=== PATIENT | female | born 2000 | race African-American/Black ===

== ENCOUNTER 2019-12-27 05:37 | Inpatient (IN) | payer OTHER, SELFPAY ==
[2019-12-27] VITALS (163 sets, daily range): BP systolic 75–184; BP diastolic 45–123; PULSE 54–204; RESP 16; TEMP 36.6–37.2; O2SAT 76–100; BMI 36.6
--- NOTE | 2019-12-27 06:30 | LDADM ---
This patient, Isaac Salas, was admitted to Labor/Delivery/Recovery 106 on 12/27/19 at 05:37. Plans for labor, pain management and were discussed with patient. Patient/family oriented to hospital policies and general routines including ID bracelet, bed and alarms, visiting hours, pain management, procedures, bathroom and other care routines, personal items, smoking policy, room service/diet and guest tray routines, infant security routines, and visiting hours. Patient/Family are encouraged to report perceived risks to care and to ask questions if they do not understand what they are told or what they should do. See OBIX for further documentation.
[2019-12-27] MEDS: LACTATED RINGERS 1,000 ML 125 ML IV CONT ×3 (06:45→14:17)
[2019-12-27] MEDS: AMPICILLIN 2 GM/NS 100 ML 2 GM/100 ML BAG IVPB (06:46)
[2019-12-27 06:48] LABS: Basophils Percent Auto 0.3 % (0.2-1.2); Eosinophils Absolute Auto 0.1 K/mm3 (0-0.3); Eosinophils Percent Auto 0.5 % (0-4.4); Hematocrit 33.7 % (37.0-47.0); Hemoglobin 11.2 g/dL (12.0-15.0); Immature Granulocyte Absolute 0.14 K/mm3 (0.00-0.031); Immature Granulocyte Percent A 1.5 % (0-0.5); Lymphocytes Absolute Auto 2.07 K/mm3 (0.9-3.2); Mean Corpuscular HGB Conc 33.2 g/dl (32-36); Mean Corpuscular Hemoglobin 28.6 pg (26-34); Mean Platelet Volume 9.2 fl (7.4-10.4); Monocytes Absolute Auto 0.9 K/mm3 (0.1-0.6); Monocytes Percent Auto 9.8 % (2.6-8.5); Neutrophils Absolute Auto 6.2 K/mm3 (1.3-6.7); Neutrophils Percent Auto 65.9 % (45.5-73.1); Platelet Count Result 330 k/mm3 (150-375); Red Blood Count 3.92 M/mm3 (4.2-5.4); Red Cell Distribution Width 13.6 % (11.5-14.5); White Blood Count 9.4 K/mm3 (4.5-10.0)
[2019-12-27 08:44] LABS: Rapid Plasma Reagin Non-Reactive (NonReactive)
--- NOTE | 2019-12-27 09:04 | P.HP_ITS ---
Obstetrics - Admit Note Admission Note: record reviewed. Pertinent additions to the history and/or any subsequent changes in the physical findings that are not consistent with the expected course of the were found. Additions to the history and/or subsequent changes in the physical findings follow. 19 yo primigravida comes to L & D for MIL at 39 weeks , confirmed by VIMAL of .01/03/2020. complicated by hyperthyroidism and is been seen by tactical/mobile watch officer. Methimizole was stopped 2 weeks ago. GBS positive AROM performed, thin meconium status reassuring Cx; /-2 Expectant managment of labor.
[2019-12-27] MEDS: AMPICILLIN 1 GM/NS 50 ML 1 GM/50 ML BAG IVPB ×3 (10:03→18:04)
--- NOTE | 2019-12-27 10:29 | WPDANESEPP ---
Anes - Eval Pre Procedure Procedure: Labor epidural Date/Time: 12/27/19 10:29 Surgeon: Madelin Quach M.D. Preop Diagnosis: pain during labor Pre Op Diagnosis: iol Patient Data Age: 19 Gender: F Height: 1.68 m Weight: 103 kg Last Vital Signs Temp 37.1 C 12/27/19 07:30 Pulse 66 12/27/19 10:29 BP 145/87 H 12/27/19 10:29 Pulse Ox 100 12/27/19 10:29 Allergies Allergy/AdvReac Type Severity Reaction Status Date / Time No Known Allergies Allergy Verified 12/20/19 15:38 Home Medications Medication Instructions Recorded Confirmed Type PNV cmb#95-ferrous fumarate-FA 1 tablet PO DAILY 12/20/19 12/27/19 History [] ergocalciferol (vitamin D2) 50,000 unit PO 2XW 12/20/19 12/27/19 History [Vitamin D2] Laboratory Tests 12/27/19 12/27/19 12/27/19 06:38 06:38 06:38 WBC 9.4 K/mm3 K/mm3 (4.5-10.0) RBC 3.92 M/mm3 L M/mm3 (4.2-5.4) Hgb 11.2 g/dL L g/dL (12.0-15.0) Hct 33.7 % L % (37.0-47.0) MCV 86.0 fl fl (80-100) MCH 28.6 pg pg (26-34) MCHC 33.2 g/dl g/dl (32-36) RDW 13.6 % % (11.5-14.5) Plt Count 330 k/mm3 k/mm3 (150-375) MPV 9.2 fl fl (7.4-10.4) Immature Gran % (Auto) 1.5 % H % (0-0.5) Neut % (Auto) 65.9 % % (45.5-73.1) Lymph % (Auto) 22.0 % % (18.3-44.2) [place] % (Auto) 9.8 % H % (2.6-8.5) Eos % (Auto) 0.5 % % (0-4.4) Baso % (Auto) 0.3 % % (0.2-1.2) Lymph # (Auto) 2.07 K/mm3 K/mm3 (0.9-3.2) [place] # (Auto) 0.9 K/mm3 H K/mm3 (0.1-0.6) Eos # (Auto) 0.1 K/mm3 K/mm3 (0-0.3) Baso # (Auto) 0.0 K/mm3 K/mm3 (0.0-0.1) Abs Immat Gran (auto) 0.14 K/mm3 H K/mm3 (0.00-0.031) Absolute Neuts (auto) 6.2 K/mm3 K/mm3 (1.3-6.7) Absolute Nucleated RBC 0.0 K/mm3 K/mm3 (0.0-0.012) Nucleated RBC % 0.0 % % (0.0-0.2) RPR Non-reactive (NonReactive) Blood Type O Positive Antibody Screen Negative Patient hx anesthesia problems: none Family hx anesthesia problems: none [facility] Family History Family History (Updated 12/20/19 @ 15:42 by Mik Vazquez RN) Mother H/O thyroidectomy Hypertension Grandparent Diabetes mellitus Social History Social History Smoking status: Former smoker Substance use: former Spiritual care concerns: No Exam Day of Procedure 12/27/19 10:29
[2019-12-27] MEDS: ONDANSETRON INJ 4 MG/2 ML VIAL IV PUSH (11:44)
--- NOTE | 2019-12-27 20:25 | PM.OBPRVD ---
OB - Delivery Note Procedure Delivery date: 12/27/19 Induction method: AROM (thin meconium) and per pitocin protocol Delivery monitor: internal FHT and internal uterine Route of delivery: Laceration description: None Estimated blood loss (mL): 100 Anesthesia type: Epidural Disposition: floor Complications: None Baby Date of : 12/27/19 Weeks of gestation at delivery: 39 gender: Male Weight (pounds): 6 Weight (ounces): 4 presentation: vertex Placenta delivery description: Spontaneous cord vessel description: Nuchal Cord (x 2) score one minute: 8 score five minutes: 9
--- NOTE | 2019-12-27 20:28 | P.DS_ITS ---
OB - DS: Summary OB Procedures : NST OB Procedures Intrapartum: Spontaneous Vag Delivery OB Procedures: : None Peripartum Data Infant Delivery Method: Natural Vaginal complications: none Time Spent with Patient Time attestation: Total time spent providing and/or coordinating discharge services: DS: Data Data Completed and Pending Labs on day of discharge: Labs from last 24 hours 12/27/19 12/27/19 12/27/19 06:38 06:38 06:38 WBC 9.4 RBC 3.92 L Hgb 11.2 L Hct 33.7 L MCV 86.0 MCH 28.6 MCHC 33.2 RDW 13.6 Plt Count 330 MPV 9.2 Immature Gran % (Auto) 1.5 H Neut % (Auto) 65.9 Lymph % (Auto) 22.0 [place] % (Auto) 9.8 H Eos % (Auto) 0.5 Baso % (Auto) 0.3 Lymph # (Auto) 2.07 [place] # (Auto) 0.9 H Eos # (Auto) 0.1 Baso # (Auto) 0.0 Abs Immat Gran (auto) 0.14 H Absolute Neuts (auto) 6.2 Absolute Nucleated RBC 0.0 Nucleated RBC % 0.0 RPR Non-reactive Blood Type O Positive Antibody Screen Negative Discharge Plan Discharge Attending physician on discharge: Madelin Quach Discharging Clinician: Madelin Quach Patient Disposition: Home, Self-Care Activity: as tolerated and pelvic rest Diet: regular Patient Instructions: Antibiotic Form Stand Alone Forms: General Discharge Information Follow-up/Referrals: Madelin Quach MD [Physician] - Discharge Medications: New polysaccharide iron complex 150 mg iron Capsule 150 mg PO BIDWM Qty: 60 RF: 0 docusate sodium 100 mg Capsule 100 mg PO BID Qty: 60 RF: 0 ibuprofen 600 mg Tablet 600 mg PO Q6H PRN (Reason: Cramping) Qty: 60 RF: 0 Continued PNV cmb#95-ferrous fumarate-FA [] 28 mg iron- 800 mcg Tablet 1 tablet PO DAILY RF: 0 ergocalciferol (vitamin D2) [Vitamin D2] 1,250 mcg (50,000 unit) Capsule 50,000 unit PO 2XW RF: 0 Date of admission: 12/27/19 05:37 Primary Care Provider: Bladimir,Falguni Chow Admitting Provider: Madelin Quach Attending physician on admission: Madelin Quach
[2019-12-27] MEDS: IBUPROFEN 600 MG TABLET (20:55)
[2019-12-27 21:01] LABS: Uric Acid 4.8 mg/dL (2.5-7.5)
[2019-12-27 21:12] LABS: Alanine Aminotransferase 19 U/L (4-35); Albumin Level 3.6 g/dL (3.5-5.1); Alkaline Phosphatase 243 U/L (38-126); Aspartate Amino Transferase 29 U/L (14-36); Bilirubin,Total 0.5 mg/dL (0.2-1.3); Calcium 9.3 mg/dL (8.4-10.2); Carbon Dioxide 25 mmol/L (22-30); Chloride 100 mmol/L (98-107); Estimated CRCL calculation 133 ml/min; Estimated Glomerular Filt Rate > 60; Glucose 158 mg/dL (65-105); Potassium 3.6 mmol/L (3.4-5.0)
[2019-12-27 21:16] LABS: Sodium 133 mmol/L (137-145)
[2019-12-27 21:19] LABS: Amphetamine Screen Urine Negative (Negative); Barbiturate Screen Urine Negative (Negative); Benzodiazepines Screen Urine Negative (Negative); Cannabinoid Screen Urine Positive (Negative); Cocaine Screen Urine Negative (Negative); Methadone Screen Urine Negative (Negative); Opiate Screen Urine Negative (Negative); Phencyclidine Screen Urine Negative (Negative)
[2019-12-27 21:19] LABS: Blood Urea Nitrogen < 2 mg/dL (7-17)
[2019-12-27] MEDS: FAMOTIDINE 20 MG TABLET PO (21:56)
[2019-12-27] MEDS: BENZOCAINE 20% AER SPR (*SP) 56 GM CAN 1 SPRAY TOPICAL (21:56)
[2019-12-27] MEDS: WITCH HAZEL 40 PADS 1 PAD TOPICAL (21:56)
[2019-12-28 05:20] LABS: Hematocrit 30.7 % (37.0-47.0); Hemoglobin 10.4 g/dL (12.0-15.0)
--- NOTE | 2019-12-28 08:20 | WPDANLDPN2 ---
Anes-Prog Note L&D Date/Time: 12/28/19 08:20 Comfortable throughout: labor and delivery Neuraxial method: epidural Epidural/Spinal procedure site: clean & non-tender Neuro status: Neuro function grossly intact. Cardiovascular status: normal Respiratory status: normal Airway patency: baseline Mental status: baseline Post-Op hydration status: normal Vital Signs: Last Vital Signs Temp 36.7 C 12/27/19 22:30 Pulse 67 12/27/19 22:30 Resp 16 12/27/19 22:30 BP 153/87 H 12/27/19 22:30 Pulse Ox 97 12/27/19 19:35 I/O: Intake & Output 12/27/19 12/28/19 12/28/19 23:59 07:59 15:59 Intake Total 1000 Output Total 195 Balance 805 Post-procedural complaints: none Patient feedback: Patient satisfied with anesthetic care.
[2019-12-28 09:00] VITALS: BP 132/76; PULSE 86; RESP 18; TEMP 36.9
[2019-12-28] MEDS: IBUPROFEN 600 MG TABLET PO ×2 (09:03→20:23)
[2019-12-28] MEDS: FAMOTIDINE 20 MG TABLET PO (09:03)
[2019-12-28] MEDS: MULTIVIT/MIN/PREN/FOL AC/IRON TABLET 1 TAB PO (09:04)
[2019-12-28] MEDS: DOCUSATE SODIUM 100 MG CAPSULE PO (09:04)
--- NOTE | 2019-12-28 09:55 | PCCCNOTE ---
Addendum entered by KAMAR Gutiérrez 12/29/19 08:37: 12/29/2019, received email notification from [facility] that a report will not be generated. DCFS will not come to see the pt. Intake ID: [id number]. Pt. aware and denies any further case management needs. Original Note: Care Coordination Note: Met with pt. and DEREK Livingston today regarding concerns of maternal substance use. This is pt.'s first child. DEREK Cameroni first child as well. Pt. has supportive family who reside locally. Pt. has all necessary supplies including a bassinet, car seat, clothing, diapers and other supplies. Pt. was provided resources and states she is already utilizing [place] for herself. Pt. reports she uses marijuana recreationally, denies any other substance use. Pt. denies that she is addicted to marijuana or any other substance. Pt. is aware that baby is currently being tested, and DCFS will be contacted to determine if they will come out and speak to ptLorraine CC submitted online report to [facility] Report ID: [id number]. Will follow.
--- NOTE | 2019-12-28 14:30 | P.PNOB_ITS ---
OB - PN: Subj Subjective Date/time seen: 12/28/19 14:30 Patient comments: no complaints, pain well controlled, tolerating diet and flatus present [place] baby status: doing well and nursing well feeding status: breast and bottle feeding OB - PN: Obj Data Labs CBC & Chem 7: 12/28/19 04:46 12/27/19 20:38 Labs: Laboratory Results - last 24 hr 12/27/19 12/27/19 12/27/19 20:38 20:38 20:43 Hgb Hct Sodium 133 L Potassium 3.6 Chloride 100 Carbon Dioxide 25 BUN < 2 L Creatinine 0.70 Estim Creat Clear Calc 133 Estimated GFR > 60 Glucose 158 H Uric Acid 4.8 Calcium 9.3 Total Bilirubin 0.5 AST 29 ALT 19 Alkaline Phosphatase 243 H Total Protein 7.0 Albumin 3.6 Urine Opiates Screen Negative Urine Methadone Screen Negative Ur Barbiturates Screen Negative Ur Phencyclidine Scrn Negative Ur Amphetamine Screen Negative U Benzodiazepines Scrn Negative Urine Cocaine Screen Negative U Cannabinoids Screen Positive A 12/28/19 04:46 Hgb 10.4 L Hct 30.7 L Sodium Potassium Chloride Carbon Dioxide BUN Creatinine Estim Creat Clear Calc Estimated GFR Glucose Uric Acid Calcium Total Bilirubin AST ALT Alkaline Phosphatase Total Protein Albumin Urine Opiates Screen Urine Methadone Screen Ur Barbiturates Screen Ur Phencyclidine Scrn Ur Amphetamine Screen U Benzodiazepines Scrn Urine Cocaine Screen U Cannabinoids Screen OB - PN A/P Plan day: 1 Plan: routine care, discharge home (tomorrow) and follow up 6 weeks Comments: encourage ambulation BF instructed desires infant to be circumcised. discussed procedure as well as risk i.e i nfection, bleeding, injury to penis. Couple voiced verbalized. informed consent obtained Anticipate D/C tomorrow Time Spent With Patient Time: Total time spent is greater than 50% in coordination of care (as documented) at patient's floor/unit and/or counseling patient: Time with patient: 15 - 25 minutes Review of Systems Constitutional: Constitutional: Reports no additional constitutional complaints Cardiovascular: Cardiovascular: Reports no additional cardiovascular complaints Respiratory: Respiratory: Reports no additional respiratory complaints Gastrointestinal: Gastrointestinal: Reports no additional gastrointestinal complaints Genitourinary: Genitourinary: Reports no additional female genitourinary complaints Exam Const: General: comfortable, no acute distress, alert and awake Resp: Effort & Inspection: normal respiratory effort Auscultation: clear to auscultation bilaterally Cardio: Rate: regular rate GI: Auscultation: normal bowel sounds Other: Fundus firm below umbilicus
[2019-12-28] MEDS: SIMETHICONE 80 MG TAB.CHEW PO (15:24)
[2019-12-28 20:17] VITALS: BP 133/87; PULSE 91; RESP 18; TEMP 36.9
--- NOTE | 2019-12-28 22:00 | PC.NURSE ---
Patient viewed the discharge video Mother & Baby Care, The First Two Weeks . Patient was given the opportunity and encouraged to ask questions. Patient verbalized understanding of information shared and has been given the mother/baby guide for home reference.
--- NOTE | 2019-12-29 01:51 | PC.NURSE ---
Daylight Savings Time For Daylight Savings Time Beginning in the Spring - Clocks are moved ahead. For [facility], the time of change occurs at 0200 hrs. Time is taken from the sql server dba. This entry on the patient's chart recognizes the change in time reflected during documentation. Example: 2 entries for vital signs may be charted for 0200 hrs.
[2019-12-29 06:25] VITALS: BP 133/82; PULSE 72; RESP 14; TEMP 36.3
[2019-12-29] MEDS: IBUPROFEN 600 MG TABLET PO (06:58)
== END 2019-12-29 14:25 | disposition home or self-care (01) | DRG 560 ==
LOC: ANHLDR 09:35 → ANHOB2 22:44
PROVIDERS: Admitting Provider Obstetrics & Gynecology; PCP Family Medicine; Visit Provider Obstetrics & Gynecology
DX: O13.4 Gestational [pregnancy-induced] hypertension without significant proteinuria, complicating childbirth (principal); O99.284 Endocrine, nutritional and metabolic diseases complicating childbirth; E05.90 Thyrotoxicosis, unspecified without thyrotoxic crisis or storm; O99.824 Streptococcus B carrier state complicating childbirth; O77.0 Labor and delivery complicated by meconium in amniotic fluid; O43.113 Circumvallate placenta, third trimester; O43.123 Velamentous insertion of umbilical cord, third trimester; O99.324 Drug use complicating childbirth; F12.90 Cannabis use, unspecified, uncomplicated; Z3A.39 39 weeks gestation of pregnancy; Z87.891 Personal history of nicotine dependence; Z37.0 Single live birth
CPT/HCPCS: 36415; 80053; 80307; 84550; 85014; 85018; 85025; 86592; 86850; 86900; 86901; 88307; A9270; J0290; J2405; J2590; J2795; J7120

== ENCOUNTER 2020-01-02 18:18 | Emergency (ER) | payer OTHER, SELFPAY ==
[2020-01-02 18:21] VITALS: BP 155/103; PULSE 99; RESP 16; TEMP 36.8; O2SAT 100
--- NOTE | 2020-01-02 18:39 | ED.SKABFB ---
HPI - Skin/Abscess/Foreign Bdy General Chief complaint: Skin/Abscess/Foreign Body Stated complaint: rash/swelling to face Time Seen by Provider: 01/02/20 18:30 Source: patient and RN notes reviewed Mode of arrival: ambulatory Limitations: no limitations History of Present Illness HPI narrative: A 19 y/o female presents to the ED with a constant, worsening, eye itching and swelling below her eyes for the past 2 days. She states that it began around her mouth and that it then spread up to her eyes and nose. She reports associated facial swelling, itching, and burning. She notes that her eyes have also been watering. She denies any white discharge. No redness of the eyes. She denies any new makeup, soaps, medications, or any new exposers. She also denies any SOB, tongue swelling, vision changes, or rashes to other places. She denies any fever or chills. Denies vision changes. No hives. MD complaint: rash Onset (ago): day(s) (2) Location: face Quality: burning and other (swelling and itching) Pain Consistency: constant and other (worsening) Context: none Associated symptoms: other (eye watering) Treatments prior to arrival: none Related Data Home Medications Medication Instructions Recorded Confirmed PNV cmb#95-ferrous fumarate-FA 1 tablet PO DAILY 12/20/19 12/27/19 [] ergocalciferol (vitamin D2) 50,000 unit PO 2XW 12/20/19 12/27/19 [Vitamin D2] Allergies Allergy/AdvReac Type Severity Reaction Status Date / Time No Known Allergies Allergy Verified 01/02/20 18:38 Review of Systems Review of Systems: Narrative: EYES: Denies visual changes. She reports eye watering. ENT: Denies tongue swelling. RESPIRATORY: Denies dyspnea. GI: Denies abd pain, nausea or vomiting SKIN: Reports a itchy, burning, rash around her mouth, eyes, and nose. Denies any other rashes. All systems reviewed & are unremarkable except as noted in HPI and below PMFSH Past Medical History Medical History Hx of migraines Hypothyroid Surgical History Surgical History No history of previous surgery Family History Family History Mother H/O thyroidectomy Hypertension Grandparent Diabetes mellitus Social History Social History Smoking status: Former smoker Substance use: former Gender identity (if verbalized by the patient): Female Spiritual care concerns: No Exam Narrative: Exam Narrative: GENERAL: Well-appearing, well-nourished, and in no acute distress. HEAD: Normocephalic, atraumatic. EYES: PERRLA and EOMI. no conjunctivitis. Bilateral minimal edema of the lower eyelids, no conjunctival injection. No evidence of vesicles, no discharge from the eye. No tearing. No erythema or warmth. ENT: Turbinates are bilaterally edematous and erythematous. Mild rhinorrhea.. Mucous membranes moist. NECK: Supple. Uvula is midline without tongue edema. No trismus. CHEST: Clear to auscultation. No respiratory distress. HEART: Regular rate and rhythm. No murmur heard. Normal peripheral pulses. ABDOMEN: Soft, nontender, nondistended, normal active bowel sounds. EXTREMITIES: Normal range of motion. No edema. SKIN: Warm, dry, no rash. No urticaria, no vesicles on the face, neck, chest, abdomen or flanks. NEURO: No focal deficits. Alert and oriented x3 Course Vital Signs Vital signs: Vital Signs Temperature 36.8 C 01/02/20 18:21 Pulse Rate 99 01/02/20 18:21 Respiratory Rate 16 01/02/20 18:21 Blood Pressure 155/103 H 01/02/20 18:21 Pulse Oximetry 100 01/02/20 18:21 Temperature 36.8 C 01/02/20 18:21 Pulse Rate 99 01/02/20 18:21 Respiratory Rate 16 01/02/20 18:21 Blood Pressure 155/103 H 01/02/20 18:21 Pulse Oximetry 100 01/02/20 18:21 MDM - Skin/Abscess/Foreign Bdy MDM Narrative Medical decision making narrative: Carli
== END 2020-01-02 19:33 | disposition home or self-care (01) ==
PROVIDERS: Emergency Provider Emergency Medicine; PCP Family Medicine
DX: T78.40XA Allergy, unspecified, initial encounter (principal); H57.89 Other specified disorders of eye and adnexa; E03.9 Hypothyroidism, unspecified; Z87.891 Personal history of nicotine dependence
CPT/HCPCS: 99283

== ENCOUNTER 2020-10-14 10:58 | Emergency (ER) | payer OTHER, SELFPAY ==
[2020-10-14 11:15] VITALS: BP 153/86; PULSE 79; RESP 16; TEMP 36.3; O2SAT 100
--- NOTE | 2020-10-14 11:38 | ED.ABDPAIN ---
HPI - Abdominal Pain General Chief Complaint: Urogenital-Female Stated Complaint: Possible UTI Time Seen by Provider: 10/14/20 11:30 Source: patient Mode of arrival: ambulatory Limitations: no limitations History of Present Illness HPI narrative: Isaac Salas is a 19 yo female with no PMH who comes to express care with c/o burning in abdomen, started the last few days feels like a burning sensation in her esophagus and into her abdomen. States it does not improve with eating and does not get worse with soda or coffee. Woke up this morning with burning sensation that is what brought her here Only significant medical history is she had a baby about 6 months ago Related Data Allergies Allergy/AdvReac Type Severity Reaction Status Date / Time No Known Allergies Allergy Verified 10/14/20 11:17 Review of Systems Review of Systems: Narrative: CONSTITUTIONAL: Denies fever, chills, sweats. EYES: Denies visual changes, redness, discharge. ENT: Denies rhinorrhea, congestion, sore throat, otalgia. CARDIOVASCULAR: Denies chest pain, palpitations, edema. RESPIRATORY: Denies dyspnea, wheezing, cough GASTROINTESTINAL: Denies abdominal pain, nausea, vomiting, diarrhea. Complaining of burning in abdomen GENITOURINARY: Denies dysuria, hematuria, abnormal discharge SKIN: Denies rash or itching. NEUROLOGIC: Denies numbness, or focal weakness. PSYCHIATRIC: Denies anxiety or depression. PMFSH Past Medical History Medical History (Updated 10/14/20 @ 11:57 by Radha Lei CNP) Hx of migraines Hypothyroid Surgical History Surgical History No history of previous surgery Family History Family History Mother H/O thyroidectomy Hypertension Grandparent Diabetes mellitus Social History Social History Smoking status: Former smoker Substance use: former Gender identity (if verbalized by the patient): Female Spiritual care concerns: No Comments At time of signature, I agree with nursing past medical, surgical, social and family history. There is no relevant family history pertinent to the presenting complaint. Exam Narrative: Exam Narrative: GENERAL: This is a well-nourished, well-developed patient, in mild distress. HEAD: normocephalic, atraumatic. EYES: Sclera clear/white. Vision is grossly intact. EARS: External ears normal. Hearing grossly intact. NOSE: External nose normal without nasal discharge, nares without redness, no rhinorrhea. THROAT: Mucous membranes moist, NECK: Neck supple, non-tender CARDIOVASCULAR: Regular rate and rhythm without murmurs, gallops, or rubs. RESPIRATORY: Clear to auscultation. Breath sounds equal bilaterally. No wheezes, rales, or rhonchi. GASTROINTESTINAL: Abdomen soft, non-tender, describes burning in epigastric area and into stomach above umbilicus SKIN: warm, intact with no suspicious lesions or rash, good texture and turgor. NEURO: awake, alert, and oriented to person, place and time. There were no obvious focal neurologic abnormalities. Steady gait EXTREMITIES: Normal range of motion. BACK: Nontender without deformity Course Reevaluation(s) Reevaluation #1: Patient received GI cocktail and Pepcid-we will order the Pepcid for outpatient treatment twice daily Date: 10/14/20 Time: 11:55 Vital Signs Vital signs: Vital Signs Temperature 97.3 F L 10/14/20 11:15 Pulse Rate 79 10/14/20 11:15 Respiratory Rate 16 10/14/20 11:15 Blood Pressure 153/86 H 10/14/20 11:15 Pulse Oximetry 100 10/14/20 11:15 Temperature 97.3 F L 10/14/20 11:15 Pulse Rate 79 10/14/20 11:15 Respiratory Rate 16 10/14/20 11:15 Blood Pressure 153/86 H 10/14/20 11:15 Pulse Oximetry 100 10/14/20 11:15 MDM - Abdominal Pain Lab Data Labs: UCG Bedside Result Negative
[2020-10-14] MEDS: BELLADONNA ALK/PHENOB ELIX 10 ML, MAG HYDROX/ALUMINUM HYD/SIMETH 30 ML, LIDOCAINE HCL 2... PO (11:52)
[2020-10-14] MEDS: FAMOTIDINE 20 MG TABLET PO (11:56)
== END 2020-10-14 12:10 | disposition home or self-care (01) ==
PROVIDERS: Emergency Provider Nurse Practitioner; PCP Family Medicine
DX: K21.9 Gastro-esophageal reflux disease without esophagitis (principal); E89.0 Postprocedural hypothyroidism; Z87.891 Personal history of nicotine dependence
CPT/HCPCS: 81003; 81025; 87077; 87086; 87088; 87186; 99213; A9270; G0463

== ENCOUNTER 2021-04-18 10:05 | Emergency (ER) | payer OTHER, SELFPAY ==
[2021-04-18 10:15] VITALS: BP 153/110; PULSE 71; RESP 18; TEMP 35.8; O2SAT 100
--- NOTE | 2021-04-18 10:28 | ED.GENADULT ---
HPI - General Adult General Chief complaint: Urogenital-Female Stated complaint: Abdominal Pain Source: patient Mode of arrival: ambulatory Limitations: no limitations History of Present Illness HPI narrative: Patient presents for evaluation of suprapubic pain for the last 2 days. Patient is actively menstruating as of 2 days ago. She states she has suprapubic cramping with radiation into the low back bilaterally. She felt nauseated on the first day of her symptoms which has been present in the mornings that continued through today. Today she noted a few episodes of vomiting. No fever, chills, urinary symptoms, vaginal discharge. She states she had similar symptoms in the past with a urinary tract infection. States that her period at the current time is light, ongoing for approximately 4 pads per day, although they are not heavily saturated. Related Data Allergies Allergy/AdvReac Type Severity Reaction Status Date / Time No Known Allergies Allergy Verified 04/18/21 10:12 Review of Systems Review of Systems: Narrative: CONSTITUTIONAL: Reports hot flashes. Denies fever, chills, or sweats. EYES: Denies visual changes, redness, or discharge. ENT: Denies rhinorrhea, congestion, sore throat, or otalgia. CARDIOVASCULAR: Denies chest pain, palpitations, or edema. RESPIRATORY: Denies cough or dyspnea. GASTROINTESTINAL: Reports abdominal pain, nausea, vomiting. Denies diarrhea. GENITOURINARY: Reports light vaginal as she is actively menstruating. Denies dysuria or hematuria. SKIN: Denies rash or itching. MUSCULOSKELETAL: Reports back pain. Denies joint pain, or myalgia. NEUROLOGIC: Denies headache, numbness, dizziness, or weakness. PSYCHIATRIC: Denies anxiety or depression. [facility] Past Medical History Medical History (Updated 04/18/21 @ 10:39 by CASS Bernal, LUZ) Hx of migraines Hypothyroid Surgical History Surgical History No history of previous surgery Family History Family History Mother H/O thyroidectomy Hypertension Grandparent Diabetes mellitus Social History Social History Smoking status: Current every day smoker Additional smoking assessment comments: 2 packs per week Substance use: current Substance use type: marijuana Living arrangements: with family Gender identity (if verbalized by the patient): Female Sexual Orientation (if Verbalized by the Patient): Straight or Heterosexual Spiritual care concerns: No Exam Narrative: Exam Narrative: GENERAL: Well-appearing, well-nourished, and in no acute distress. HEAD: Normocephalic, atraumatic. EYES: PERRLA and EOMI. ENT: Nares clear, no rhinorrhea or epistaxis. Mucous membranes moist. Oropharynx without tonsillar hypertrophy exudate or other lesions. Bilateral TMs pearly matos nonbulging NECK: Supple. No adenopathy or masses. No carotid bruits or JVD CHEST: Clear to auscultation. No respiratory distress. No wheezes rales or rhonchi HEART: Regular rate and rhythm. No murmur heard. Normal peripheral pulses. ABDOMEN: Soft, nontender, nondistended, normal active bowel sounds. No CVA tenderness EXTREMITIES: Normal range of motion. No edema. SKIN: Warm, dry, no rash. NEURO: No focal deficits. Alert and oriented x3. PSYCH: Normal mood and affect. Course Course Emergency Course: This is a 20-year-old female who presented with complaints of suprapubic pain that started the same day of the start of her period. On physical exam she has no abdominal tenderness or CVA tenderness. test was negative. There is no evidence of infection on her urinalysis. My initial evaluation she appeared extremely calm and symptom free. On reassessment, she was on the phone with her mother and reported she was having abdominal pain. I advised she go to ER for further kelvin
== END 2021-04-18 10:47 | disposition home or self-care (01) ==
PROVIDERS: Emergency Provider Nurse Practitioner; PCP Family Medicine
DX: R10.30 Lower abdominal pain, unspecified (principal); F17.200 Nicotine dependence, unspecified, uncomplicated; E03.9 Hypothyroidism, unspecified
CPT/HCPCS: 81003; 81025; 99213; G0463

== ENCOUNTER 2021-04-18 14:08 | Emergency (ER) | payer OTHER, SELFPAY ==
--- NOTE | ~2021-04-18 | CT_ITS ---
EXAMINATION: CT abdomen pelvis w con DATE: 04/18/2021 16:17 INDICATION: Low abdominal pain. TECHNIQUE: Computed tomography (CT) of the abdomen and pelvis was performed with 100 mL Omnipaque 350 intravenous contrast. Automated exposure control and iterative reconstruction technique were employe d. The dose-length product was 626.48 mGy-cm. COMPARISON: None. FINDINGS: The visualized portions of the lung bases are clear without pneumonia or pleural effusion. The heart size is normal. No pericardial effusion. The liver, gallbladder, spleen, pancreas, adrenal glands, and right kidney are normal. There is a 2.9 cm heterogeneous mass in left kidney. There are n o dilated loops of bowel. The appendix is normal. There are no pathologically enlarged lymph nodes. T here is no free intraperitoneal fluid. IMPRESSION: 1. 2.9 cm left kidney mass, most likely a hemorrhagic cyst. No urinary tract infection to suggest abs cess. Abdomen CT without and with contrast is recommended to exclude neoplasm. Reviewed, dictated and finalized at location A. IMPRESSION: 1. 2.9 cm left kidney mass, most likely a hemorrhagic cyst. No urinary tract in fection to suggest abscess. Abdomen CT without and with contrast is recommended to exclude neoplasm.
--- NOTE | ~2021-04-18 | XR_ITS ---
EXAMINATION: XR chest 1V portable DATE: 04/18/2021 14:37 INDICATION: Shortness of breath. TECHNIQUE: A single frontal view of the chest was obtained. COMPARISON: None. FINDINGS: The chest demonstrates clear lungs without pneumonia, pleural effusion, or pneumothorax. Th e heart size is normal. IMPRESSION: 1. No acute cardiopulmonary disease. Reviewed, dictated and finalized at location A.
[2021-04-18 14:10] VITALS: BP 155/86; PULSE 61; RESP 17; TEMP 36.3; O2SAT 100
--- NOTE | 2021-04-18 14:16 | ECG_ITS ---
Measurements Intervals [place] Rate: 58 P: 48 CT: 150 QRS: 31 QRSD: 84 T: 14 QT: 420 QTc: 413 Interpretive Statements SINUS BRADYCARDIA WITH MARKED SINUS ARRHYTHMIA BASELINE ARTIFACT- V1-V3, V6 BORDERLINE ECG Electronically Signed On 04-18-2021 14:59:22 CDT by Brian Toney D.O.
--- NOTE | 2021-04-18 14:23 | ED.GENADULT ---
HPI - General Adult General Chief complaint: Nausea/Vomiting/Diarrhea Stated complaint: syncope Time Seen by Provider: 04/18/21 14:09 Source: patient and RN notes reviewed Mode of arrival: ambulatory Limitations: no limitations History of Present Illness HPI narrative: This is a 20 year old female who presents for evaluation of abdominal pain with vomiting and diarrhea. She developed nausea, vomiting and diarrhea 3-4 days ago. She reports multiple episodes of emesis. She also reports intermittent sharp nonradiating lower abdominal pain for 2 days. She is currently on her menstrual cycle and she started 3 days ago. She reports vomiting and diarrhea are not normally associated with her menstrual cycle. She also reports weakness and feeling like she is going to pass out. She denies fever or chills, but she does report sob and cough. She was evaluated at [facility] today and referred to ER. She denies headache, sore throat. She states she is not vaccinated for COVID 19. Related Data Allergies Allergy/AdvReac Type Severity Reaction Status Date / Time No Known Allergies Allergy Verified 04/18/21 10:12 Review of Systems Review of Systems: All systems reviewed & are unremarkable except as noted in HPI and below Constitutional: Constitutional: Denies chills, Denies fever(s) and Reports weakness ENT: Denies sore throat Cardiovascular: Cardiovascular: Denies chest pain Respiratory: Respiratory: Denies cough and Reports dyspnea Gastrointestinal: Gastrointestinal: Reports abdominal pain, Reports diarrhea, Reports nausea and Reports vomiting Neurologic: Reports syncope and Denies headache(s) [facility] Past Medical History Medical History (Updated 04/18/21 @ 17:30 by Lubna Neri MD) Hx of migraines Hypothyroid Surgical History Surgical History No history of previous surgery Family History Family History Mother H/O thyroidectomy Hypertension Grandparent Diabetes mellitus Social History Social History Smoking status: Current every day smoker Additional smoking assessment comments: 2 packs per week Substance use: current Substance use type: marijuana Gender identity (if verbalized by the patient): Female Spiritual care concerns: No Exam Const: General: no acute distress and alert Orientation/consciousness: patient oriented x3 Eyes: EOM: EOMs intact bilaterally Resp: Effort & Inspection: normal respiratory effort and no retractions Auscultation: clear to auscultation bilaterally Cardio: Rate: regular rate Rhythm: regular rhythm Heart sounds: no murmurs GI: GI Palp: Yes Soft to palpation, Yes Tenderness to palpation present (GI) (Diffuse) and No Guarding due to palpation present (GI) Auscultation: normal bowel sounds : General: Yes no CVA tenderness Skin: General skin exam: normal color Rashes: no rashes Neuro: General: patient oriented x3, moves all extremities and CN's II-XI intact bilaterally Psych: Mental Status: mental status grossly normal Affect: normal affect Course Reevaluation(s) Reevaluation #1: I Discussed with patient labs and CT. She was made aware of left renal cyst that she will need to follow up with PCP for evaluation. Radiologist state patient should likely get CT abdomen pelvis with and without as outpatient. Does not recommend getting today as she needs to wait several hours later. It is unlikely abscess. Likely cyst. She reports she feels better and she is asking to go home. She will be tested for covid as well. Date: 04/18/21 Time: 17:26 Vital Signs Vital signs: Vital Signs Temperature 97.4 F L 04/18/21 14:10 Pulse Rate 61 04/18/21 14:10 Respiratory Rate 17 04/18/21 14:10 Blood Pressure 155/86 H 04/18/21 14:10 Pulse Oximetry 100
[2021-04-18 14:32] LABS: Basophils Percent Auto 0.2 % (0.2-1.2); Eosinophils Percent Auto 0.2 % (0-4.4); Hematocrit 36.9 % (37.0-47.0); Hemoglobin 12.4 g/dL (12.0-15.0); Immature Granulocyte Absolute 0.05 K/mm3 (0.00-0.031); Immature Granulocyte Percent A 0.5 % (0-0.5); Lymphocytes Absolute Auto 1.46 K/mm3 (0.9-3.2); Lymphocytes Percent Auto 14.4 % (18.3-44.2); Mean Corpuscular HGB Conc 33.6 g/dl (32-36); Mean Corpuscular Hemoglobin 27.6 pg (26-34); Mean Corpuscular Volume 82.2 fl (80-100); Monocytes Absolute Auto 0.4 K/mm3 (0.1-0.6); Monocytes Percent Auto 3.8 % (2.6-8.5); Neutrophils Absolute Auto 8.2 K/mm3 (1.3-6.7); Neutrophils Percent Auto 80.9 % (45.5-73.1); Platelet Count Result 393 k/mm3 (150-375); Red Blood Count 4.49 M/mm3 (4.2-5.4); Red Cell Distribution Width 13.4 % (11.5-14.5); White Blood Count 10.2 K/mm3 (4.5-10.0)
[2021-04-18 14:46] LABS: Alanine Aminotransferase 12 U/L (4-35); Albumin Level 4.7 g/dL (3.5-5.1); Alkaline Phosphatase 84 U/L (38-126); Anion Gap 12 mmol/L (8-16); Aspartate Amino Transferase 23 U/L (14-36); Bilirubin,Total 0.4 mg/dL (0.2-1.3); Blood Urea Nitrogen 6 mg/dL (7-17); Calcium 9.9 mg/dL (8.4-10.2); Carbon Dioxide 18 mmol/L (22-30); Chloride 112 mmol/L (98-107); Estimated CRCL calculation 109 ml/min; Estimated Glomerular Filt Rate > 60; Glucose 117 mg/dL (65-105); Lipase 77 U/L (23-300); Magnesium 1.8 mg/dL (1.6-2.3); Potassium 3.5 mmol/L (3.4-5.0); Sodium 142 mmol/L (137-145)
[2021-04-18] MEDS: ONDANSETRON INJ 4 MG/2 ML VIAL IV PUSH ×2 (14:56→15:36)
[2021-04-18 14:58] VITALS: BP 155/77; PULSE 50
[2021-04-18] MEDS: LACTATED RINGERS 1,000 ML 999 ML IV CONT ×2 (14:58)
[2021-04-18 14:59] VITALS: BP 105/88; BP 167/95; PULSE 50; PULSE 57
[2021-04-18 15:00] VITALS: BP 167/95; PULSE 54; RESP 16; O2SAT 100
[2021-04-18 15:02] LABS: Add Urine Microscopic? YES; Appearance Urine Cloudy (Clear); Bacteria Urine Trace /hpf; Bilirubin Urine Negative (Negative); Blood Urine 3+ (Negative); Color Urine Yellow (Yellow); Glucose Urine UA Negative (Negative); Ketones Urine 1+ mg/dL (Negative); Leukocyte Esterase Ur Negative LEU/UL (Negative); Mucus Urine Rare /lpf; Nitrate Urine Negative (Negative); Protein Urine 1+ mg/dL (Negative); RBC Urine 51-75 /hpf (0-2); Specific Grav Ur 1.018 (1.001-1.035); Squamous Epithelial Cell Urine Many /hpf (Few); Urobilinogen Urine Negative mg/dL (<2.0); WBC Urine 0-3 /hpf
[2021-04-18 15:03] LABS: Troponin I < 0.012 ng/mL (0.000-0.034)
[2021-04-18 15:08] LABS: INR 0.9; Prothrombin Time 13.2 Seconds (11.1-14.7)
[2021-04-18 15:08] LABS: Beta HCG Quantitative < 2.39 mIU/ML
[2021-04-18 15:09] LABS: Partial Thromboplastin Time 27.5 SECONDS (22.3-36.8)
[2021-04-18 15:11] LABS: D Dimer 0.47 ug/mL (<0.48)
[2021-04-18 16:21] VITALS: BP 141/71; PULSE 62; RESP 13; O2SAT 100
[2021-04-18] MEDS: BELLADONNA ALK/PHENOB ELIX 10 ML, MAG HYDROX/ALUMINUM HYD/SIMETH 30 ML, LIDOCAINE HCL 2... PO (16:57)
[2021-04-18 18:05] VITALS: BP 149/77; PULSE 61; RESP 16; TEMP 37; O2SAT 99
[2021-04-19 18:16] LABS: SARS-CoV-2 RNA PCR Negative
== END 2021-04-18 18:07 | disposition home or self-care (01) ==
PROVIDERS: Emergency Provider General Practice; PCP Family Medicine
DX: K52.9 Noninfective gastroenteritis and colitis, unspecified (principal); N28.89 Other specified disorders of kidney and ureter; N94.6 Dysmenorrhea, unspecified; E89.0 Postprocedural hypothyroidism; F17.210 Nicotine dependence, cigarettes, uncomplicated; Z20.822 Contact with and (suspected) exposure to COVID-19; R00.1 Bradycardia, unspecified
CPT/HCPCS: 36415; 71045; 74177; 80053; 81001; 81003; 81025; 83690; 83735; 84484; 84702; 85025; 85380; 85610; 85730; 93005; 96361; 96374; 96375; 99285; A9270; C9803; J2405; J7120; Q9967; U0003; U0005